=== PATIENT | male | born 1935 | race African-American/Black ===

== ENCOUNTER 2016-12-01 07:50 | Emergency (ER) | payer OTHER ==
[~2016-12-01] VITALS: Ht 175.3 cm; Wt 63.5 kg
[~2016-12-01 07:50] MED LIST: CLIN300C86 PO; MECL25TA3 PO; ONDA4TAB7 PO
[2016-12-01] MEDS ORDERED: MORPHINE SULFATE 2 MG/ML DISP.SYRIN. IV PRN (08:15)
[2016-12-01] MEDS ORDERED: ONDANSETRON PF 4 MG/2 ML VIAL. IV PRN (08:15)
[2016-12-01] MEDS ORDERED: IV NORMAL SALINE 1000ML BAG 1,000 ML IV SCH (08:30)
[2016-12-01] MEDS ORDERED: IV NORMAL SALINE 500ML BAG 500 ML IV ONE (09:00)
[2016-12-01 09:04] LABS: CALCIUM 9.8 mg/dL (8.5-10.1); CREATININE 1.4 mg/dL (0.7-1.3); GFR 58.6; POTASSIUM 3.9 mmol/L (3.5-5.1)
[2016-12-01 09:05] LABS: NEG OBC FOB NEG; POS OBC FOB POS
[2016-12-01 09:09] LABS: BASO % 1 % (0-3); EOS % 1 % (0-3); HEMATOCRIT 40.7 % (39.0-53.0); HEMOGLOBIN 13.4 g/dL (13.0-17.5); LYMPH # 1.1 x10^3/uL (1.0-4.8); LYMPH % 21 % (24-48); MEAN CORPUSCULAR HEMOGLOBIN 28 pg (25-35); MEAN CORPUSCULAR HGB CONC 33 g/dL (31-37); MEAN CORPUSCULAR VOLUME 85 fL (79-100); MONO % 8 % (0-9); NEUT % 70 % (31-73); PLATELET COUNT 229 x10^3/uL (140-400); RED BLOOD COUNT 4.78 x10^6/uL (4.30-5.70); RED CELL DISTRIBUTION WIDTH 17.8 % (11.5-14.5); WHITE BLOOD COUNT 5.5 x10^3/uL (4.0-11.0)
[2016-12-01 09:11] LABS: ALBUMIN 3.8 g/dL (3.4-5.0); DIRECT BILIRUBIN 0.1 mg/dL (0.0-0.2); TOTAL BILIRUBIN 0.4 mg/dL (0.2-1.0); TOTAL PROTEIN 8.4 g/dL (6.4-8.2)
--- NOTE | 2016-12-01 09:15 | PHYS DOC ---
Past Medical History Past Medical History: COPD, Hypertension, Other Additional Past Medical Histor: EMPHYSEMA Past Surgical History: Other Additional Past Surgical Histo: HERNIA SURGERY X2, CYST REMOVAL X 4, PERFORATED ULCER Alcohol Use: None Drug Use: None Adult General Chief Complaint Chief Complaint: blood in stool. HPI HPI 81-year-old male presenting to the emergency department today with blood in his stools over the past few days. He reports that the amount of blood is small less than 1 tablespoon. Describes the blood as bright red. He describes it is intermittent. He reports having bowel movements without any blood in it. He's never seen a GI doctor. He does report having a stomach ulcer in the past. Onset 48 hours. Location GI tract. Duration intermittent. No alleviating factors present. Review of systems is negative for chest pain shortness of breath. Positive for lightheadedness. Negative for abdominal pain nausea or vomiting. All other review of systems is negative unless otherwise noted in history of present illness. Review of Systems Review of Systems SEE ABOVE. Current Medications Current Medications Current Medications Medications (Trade) Dose Ordered Sig/Jocelynn Start Time Stop Time Status Last Admin Dose Admin Morphine Sulfate 2 mg 2 mg PRN Q2HR PRN 12/01/16 08:15 12/01/16 08:19 DC Ondansetron HCl (Zofran) 4 mg PRN Q8HRS PRN 12/01/16 08:15 12/01/16 08:19 DC Sodium Chloride (Iv Sodium Chloride 0.9% 500ml Bag) 500 ml @ 500 mls/hr 1X ONCE 12/01/16 09:00 12/01/16 09:59 DC 12/01/16 09:26 500 MLS/HR Allergies Allergies Allergies Coded Allergies Type Severity Reaction Last Updated Verified Penicillins Allergy Intermediate Swelling 10/16/15 Yes Sulfa (Sulfonamide Antibiotics) Allergy Intermediate Rash 10/16/15 Yes Physical Exam Physical Exam Constitutional: Well developed, well nourished, no acute distress, non-toxic appearance. [] HENT: Normocephalic, atraumatic, bilateral external ears normal, oropharynx moist, no oral exudates, nose normal. [] Eyes: PERRLA, EOMI, conjunctiva normal, no discharge. [] Neck: Normal range of motion, no tenderness, supple, no stridor. [] Cardiovascular:Heart rate regular rhythm, no murmur [] Lungs & Thorax: Bilateral breath sounds clear to auscultation [] Abdomen: Bowel sounds normal, soft, no tenderness, no masses, no pulsatile masses. [] Skin: Warm, dry, no erythema, no rash. [] Back: No tenderness, no CVA tenderness. [] Extremities: No tenderness, no cyanosis, no clubbing, ROM intact, no edema. [] Neurologic: Alert and oriented X 3, normal motor function, normal sensory function, no focal deficits noted. [] Psychologic: Affect normal, judgement normal, mood normal. [] Current Patient Data Vital Signs Vital Signs Date Time Temp Pulse Resp B/P Pulse Ox O2 Delivery O2 Flow Rate FiO2 12/01/16 08:05 98.4 75 18 186/97 99 Room Air 98.4 Lab Values Laboratory Tests Test 12/01/16 08:35 12/01/16 09:19 White Blood Count 5.5x10^3/uL (4.0-11.0) Red Blood Count 4.78x10^6/uL (4.30-5.70) Hemoglobin 13.4g/dL (13.0-17.5) Hematocrit 40.7% (39.0-53.0) Mean Corpuscular Volume 85fL (79-100) Mean Corpuscular Hemoglobin 28pg (25-35) Mean Corpuscular Hemoglobin Concent 33g/dL (31-37) Red Cell Distribution Width 17.8% (11.5-14.5) H Platelet Count 229x10^3/uL (140-400) Neutrophils (%) (Auto) 70% (31-73) Lymphocytes (%) (Auto) 21% (24-48) L Monocytes (%) (Auto) 8% (0-9) Eosinophils (%) (Auto) 1% (0-3) Basophils (%) (Auto) 1% (0-3) Neutrophils # (Auto) 3.9x10^3uL (1.8-7.7) Lymphocytes # (Auto) 1.1x10^3/uL (1.0-4.8) Monocytes # (Auto) 0.4x10^3/uL (0.0-1.1) Eosinophils # (Auto) 0.0x10^3/uL (0.0-0.7) Basophils # (Auto) 0.0x10^3/uL (0.0-0.2) Prothrombin Time 13.5SEC (11.7-14.0) Prothrombin Time INR 1.1 (0.8-1.1) PTT 30SEC (24-38) Stool Occult Blood Positive (NEG) Sodium Level 144mmol/L (136-145) Potassium Level 3.9mmol/L (3.5-5.1) Chloride Level 105mmol/L (98-107) Carbon Dioxide Level 36mmol/L (21-32) H Anion Gap 3 (6-14) L Blood Urea Nitrogen 33mg/dL (8-26) H Creatinine 1.4mg/dL (0.7-1.3) H Estimated GFR (Cockcroft-Gault) 58.6 Glucose Level 102mg/dL (70-99) H Calcium Level 9.8mg/dL (8.5-10.1) Total Bilirubin 0.4mg/dL (0.2-1.0) Direct Bilirubin 0.1mg/dL (0.0-0.2) Aspartate Amino Transferase (AST) 19U/L (15-37) Alanine Aminotransferase (ALT) 26U/L (16-63) Alkaline Phosphatase 42U/L (46-116) L Total Protein 8.4g/dL (6.4-8.2) H Albumin 3.8g/dL (3.4-5.0) Urine Collection Type Unknown Urine Color Yellow Urine Clarity Clear Urine pH 6.5 Urine Specific [place] 1.015 Urine Protein Negativemg/dL (NEG-TRACE) Urine Glucose (UA) Negativemg/dL (NEG) Urine Ketones (Stick) Negativemg/dL (NEG) Urine Blood Negative (NEG) Urine Nitrite Negative (NEG) Urine Bilirubin Negative (NEG) Urine Urobilinogen Dipstick 0.2mg/dL (0.2 mg/dL) Urine Leukocyte Esterase Negative (NEG) Urine RBC Occ/HPF (0-2) Urine WBC 1-4/HPF (0-4) Urine Squamous Epithelial Cells Few/LPF Urine Bacteria Few/HPF (0-FEW) Urine Hyaline Casts Few/HPF Urine Mucus Slight/LPF Laboratory Tests 12/01/16 08:35 Laboratory Tests 12/01/16 08:35 EKG EKG [] Radiology/Procedures Radiology/Procedures [] Course & Med Decision Making Course & Med Decision Making Pertinent Labs and Imaging studies reviewed. (See chart for details) [] 81-year-old male presenting to the emergency department today with intermittent small amounts of blood in his stool. Vital signs normal heart rate. Afebrile. Blood pressure elevated. Pertinent physical exam shows a nontender abdomen. Rectal exam shows an external hemorrhoid without any fluctuance to suggest an internal hemorrhoid. Rectal exam showed normal color stool. Fecal occult testing sent. Blood work obtained. IV established and IV fluids given in the emergency department. Orthostatic vital signs in the emergency department were normal. The patient states he is feeling much better. He reports having a bowel movement in the emergency department without any blood in it. I offered the patient hospitalization patient respectfully declined. He was subsequently discharged home to follow up with his PCP over the next 2-3 days. Dragon Disclaimer Dragon Disclaimer This electronic medical record was generated, in whole or in part, using a voice recognition dictation system. Departure Departure Impression: Primary Impression: Blood in stool Additional Impression: External hemorrhoid Disposition: 01 HOME, SELF-CARE Condition: STABLE Referrals: NO PCP (PCP) LUCY HERNANDEZ MD Patient Instructions: Bloody Stools, [id number] Additional Instructions: Thank you for allowing us to participate in your care today. Return to the emergency department if you are having a lot of blood in your stool or your symptoms are worsening. Followup with your primary care physician in 2-3 days if your symptoms do not improve. If you do not have a primary care provider you can ask for a list of our primary care providers. Return to the emergency department you have any new or concerning findings. This should be evaluated by the primary care physician and any necessary consulting services for continued management within a few days after discharge. Return to emergency room if you have any new or concerning symptoms including but not limited to fever, chills, nausea, vomiting, intractable pain, any new rashes, chest pain, shortness of air, uncontrolled bleeding, difficulty breathing, and/or vision loss. Scripts Famotidine 20 Mg [id number] Mg PO HS #10 TAB Prov:STORMY DANIELLE MD 12/01/16 Problem Qualifiers STORMY DANIELLE MD Dec 01, 2016 09:15
[2016-12-01 09:20] LABS: INR 1.1 (0.8-1.1); PROTHROMBIN TIME PATIENT 13.5 SEC (11.7-14.0)
[2016-12-01 09:33] LABS: BILIRUBIN,URINE NEGATIVE (NEG); GLUCOSE,URINE NEGATIVE (NEG); NITRITE,URINE NEGATIVE (NEG); PH,URINE 6.5; PROTEIN,URINE NEGATIVE (NEG-TRACE); UROBILINOGEN,URINE 0.2 mg/dL (0.2 mg/dL)
[2016-12-01 09:50] LABS: BACTERIA,URINE FEW /HPF (0-FEW); RBC,URINE OCC /HPF (0-2); SQUAMOUS EPITHELIAL CELL,UR FEW /LPF
[2016-12-01 10:30] VITALS: BP 182/100
[2016-12-01] MEDS ORDERED: FAMO20TA5 PO (10:43)
== END 2016-12-01 10:50 | disposition home or self-care (01) ==
LOC: ER 07:50
DX: K64.4 Residual hemorrhoidal skin tags (principal); K92.1 Melena; I10 Essential (primary) hypertension; J44.9 Chronic obstructive pulmonary disease, unspecified; Z98.890 Other specified postprocedural states; Z88.0 Allergy status to penicillin; Z88.2 Allergy status to sulfonamides
CPT/HCPCS: 36415; 80048; 80076; 81001; 82274; 85027; 85610; 85730; 86850; 86900; 86901; 96360; 99284; J7040

== ENCOUNTER 2017-10-19 14:27 | Emergency (ER) | payer BC, OTHER ==
[2017-10-19 15:27] LABS: ADD MAN DIFF? NO
[2017-10-19 15:30] LABS: BASO % 1 % (0-3); EOS # 0.5 x10^3/uL (0.0-0.7); EOS % 7 % (0-3); HEMATOCRIT 39.3 % (39.0-53.0); LYMPH # 0.9 x10^3/uL (1.0-4.8); LYMPH % 13 % (24-48); MEAN CORPUSCULAR HEMOGLOBIN 29 pg (25-35); MEAN CORPUSCULAR HGB CONC 33 g/dL (31-37); MEAN CORPUSCULAR VOLUME 86 fL (79-100); MONO # 0.6 x10^3/uL (0.0-1.1); MONO % 9 % (0-9); NEUT # 4.8 x10^3uL (1.8-7.7); NEUT % 70 % (31-73); PLATELET COUNT 312 x10^3/uL (140-400); RED BLOOD COUNT 4.57 x10^6/uL (4.30-5.70); RED CELL DISTRIBUTION WIDTH 16.7 % (11.5-14.5); WHITE BLOOD COUNT 6.8 x10^3/uL (4.0-11.0)
[2017-10-19] MEDS ORDERED: IPRATRPIUM/ALBUTEROL 0.5/2.5MG 3 ML NEBU. NEB ×8 (15:30→16:00)
[2017-10-19] MEDS ORDERED: ACETAMINOPHEN 325 MG TABLET. PO ×2 (15:45)
[2017-10-19] MEDS ORDERED: ONDANSETRON PF 4 MG/2 ML VIAL. IV ×2 (15:45)
[2017-10-19] MEDS: methylPREDNISolone SOD SUCC PF 125 MG/2 ML VIAL. IV ×2 (15:48)
[2017-10-19 16:02] LABS: ANION GAP 7 (6-14); BLOOD UREA NITROGEN 32 mg/dL (8-26); BUN/CREATININE RATIO 23 (6-20); CALCIUM 10.4 mg/dL (8.5-10.1); CARBON DIOXIDE 34 mmol/L (21-32); CHLORIDE 102 mmol/L (98-107); CREATININE 1.4 mg/dL (0.7-1.3); GFR 58.4; GLUCOSE 107 mg/dL (70-99); POTASSIUM 4.2 mmol/L (3.5-5.1); SODIUM 143 mmol/L (136-145)
[2017-10-19 16:09] LABS: ALBUMIN 3.6 g/dL (3.4-5.0); ALBUMIN/GLOBULIN RATIO 0.7 (1.0-1.7); ALK PHOS 65 U/L (46-116); ALT (SGPT) 16 U/L (16-63); AST (SGOT) 16 U/L (15-37); TOTAL BILIRUBIN 0.4 mg/dL (0.2-1.0)
[2017-10-19 16:10] LABS: LACTIC ACID 1.2 mmol/L (0.4-2.0)
[2017-10-19 16:14] LABS: NT-PRO BNP 286 pg/mL (0-449); TROPONINI < 0.017 ng/mL (0.000-0.055)
[2017-10-19 16:28] LABS: INFLUENZA A PATIENT NEGATIVE (NEGATIVE); INFLUENZA B PATIENT NEGATIVE (NEGATIVE); OBC FLU VALID
== END 2017-10-19 17:26 | disposition left against medical advice (07) ==
LOC: ER 17:26 → 5 NORTH 15:31
DX: J44.1 Chronic obstructive pulmonary disease with (acute) exacerbation (principal); I11.0 Hypertensive heart disease with heart failure; I50.9 Heart failure, unspecified; Z98.890 Other specified postprocedural states; Z87.891 Personal history of nicotine dependence; Z88.0 Allergy status to penicillin; Z88.2 Allergy status to sulfonamides
CPT/HCPCS: 36415; 71046; 80053; 83605; 83880; 84484; 85025; 87804; 87804-59; 93005; 96374; 99285-25; J2930